=== PATIENT | male | born 1980 | race Caucasian/White ===

== ENCOUNTER → 2017-11-30 | Day surgery (SDC) | payer OTHER ==
--- NOTE | 2017-11-27 13:22 | Diagnostic Imaging Report ---
PROCEDURE: Frontal and lateral views of the chest. COMPARISON: None. INDICATIONS: PER OPERATIVE CHEST X-RAY FOR FOOT SURGERY FINDINGS: Lines/tubes: None. Lungs: The lungs are well inflated and clear. There is no evidence of pneumonia or pulmonary edema. Pleura: There is no pleural effusion or pneumothorax. Heart and mediastinum: The heart and the mediastinum are normal. Bones: No acute bony abnormality. IMPRESSION: 1. No acute cardiopulmonary abnormalities. Thomas Cruz M.D. Dictated by: Thomas Cruz M.D. on 11/27/2017 at 13:32 Electronically approved by: Thomas Cruz M.D. on 11/27/2017 at 13:32
[~2017-11-30] MED LIST: BUPIVACAINE HCL 0.5% 10ML MPF VIAL INJ ONE; CEFAZOLIN SOD 2 GM/D5W 50ML 50 ML IV ONE; DEXAMETHASONE SOD PHOS INJ 4 MG/ML VIAL ONE; FENTANYL CITRATE/PF 100MCG/2 ML INJ ONE; KETOROLAC TROMETHAMINE 30 MG/ML VIAL ONE; LIDOCAINE HCL 2% LOCAL INJ 5 ML SDV VIAL INJ ONE; METFORMIN HCL500 MG PO; MIDAZOLAM HCL 2 MG/2 ML VIAL ONE; MONTELUKAST SOD10 MG PO; NEOSTIGMINE 1 MG/ML 10ML VIAL ONE; ONDANSETRON HCL INJ 2 MG/ML VIAL ONE; PROPOFOL IV EMULSION 10 MG/ML 20 ML VIAL ONE; SEVOFLURANE INHAL SOLN 250 ML PEN BTL ONE; XYZAL5 MG PO; ZOLOFT50 MG PO
--- OUTSIDE RECORDS SUMMARY | 2017-11-30 08:10 | XMS REPORT ---
Author Author [facility] Address Unknown Phone Unavailable Care Team Providers [employer] Account Manager Name Role Phone MARTITA CARNEY Unavailable Unavailable Problems This patient has no known problems. Allergies, Adverse Reactions, Alerts This patient has no known allergies or adverse reactions. Medications This patient has no known medications. Results Test Description Test Time Test Comments Text Results Atomic Results Result Comments CHEST 2 VIEWS [place] [address] Patient Name: TONI MICHEL MR #: [id number] : 1980 Age/Sex: 37/M Req # : [id number] Adm Physician: Ordered by: MARTITA CARNEY DPM Report #: [id number] Location: OR Room/Bed: Procedure: [id number] DX/CHEST 2 VIEWS Exam Date: 11/27/17 Exam Time: 1230 REPORT STATUS: Signed PROCEDURE: Frontal and lateral views of the chest. COMPARISON: None. INDICATIONS: PER OPERATIVE CHEST X- RAY FOR FOOT SURGERY FINDINGS: Lines/tubes: None. Lungs: The lungs are well inflated and clear. There is no evidence of pneumonia or pulmonary edema. Pleura: There is no pleural effusion or pneumothorax. Heart and mediastinum: The heart and the mediastinum are normal. Bones: No acute bony abnormality. IMPRESSION: 1. No acute cardiopulmonary abnormalities. Mohan Bermudez M.D. Dictated by : Mohan Bermudez M.D. on 11/27/2017 at 13:32 Electronically approved by: Mohan Bermudez M.D. on 11/27/2017 at 13:32 Dictated By : MOHAN BERMUDEZ MD 31 Transcribed By: RACHAEL on 11/27/171331 COPY TO: MARTITA CARNEY DPM
--- NOTE | 2017-11-30 16:34 | Operative Report ---
DATE OF PROCEDURE: November 30, 2017 LOCATION: [facility]. PREOPERATIVE DIAGNOSES 1. 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 2. Plantarflexion of the 2nd metatarsal, right foot. POSTOPERATIVE DIAGNOSES: 1. 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 2. Plantarflexion of the 2nd metatarsal, right foot. TITLE OF OPERATION 1. Excision of the neuroma 2nd intermetatarsal space, right foot. 2. Fito osteotomy 2nd metatarsal of the right foot. ANESTHESIA: General endotracheal. HEMOSTASIS: Right ankle tourniquet at 250 mmHg. PROCEDURE IN DETAIL: The patient was taken to the operating room in a mildly sedated state and placed upon the operating table in supine position. Following induction of general anesthetic, the right lower extremity was elevated 60 degrees to exsanguinate for inflating the pneumatic thigh tourniquet. The right lower extremity was placed upon the operating table prior to performing the following procedures. The foot had been prepped and draped in the usual aseptic manner utilizing Betadine prep. A linear longitudinal incision was made overlying the dorsal aspect of the 2nd intermetatarsal space. A neurolysis had previously been performed in that area. There was a fair amount of scar tissue to advance through. Transverse intermetatarsal ligament was sectioned and the large neuroma structure underneath was noted. This was sectioned, removing the conjoined proximal extension of the nerve and dissecting out to the distal 2nd and 3rd digital extensions thus having been dissected free and removed. The nerve was sent to pathology for further evaluation. The area was irrigated with copious amounts of sterile saline solution. All superficial and deep bleeders were electrocoagulated, and the area was closed with 3-0 Vicryl and 4-0 nylon. Attention was directed to the dorsal aspect of the 2nd metatarsal of the right foot. A linear incision was placed overlying the 2nd metatarsal through the capsule and periosteum. The head of the 2nd metatarsal was identified and a Fito osteotomy was placed with a slide from distal dorsal to plantar proximal to allow it for relative shortening and remodeling of the 2nd metatarsal. This having been accomplished and the dorsal aspect further remodeled, a pop-off screw was used to fixate and the toe was put through range of motion and noted to be adequate. The area was irrigated with copious amounts of sterile saline solution. Deep closure with 3-0 Vicryl, subcutaneous closure with 4-0 Vicryl, and skin closure with 4-0 nylon. Pop-off screw was oriented from dorsal proximal to plantar distal, 12 mm in length. This area after irrigation and closure was injected with human tissue allograft, and the appropriate mildly compressive dressings were applied, blocked with 0.5% Marcaine and Decadron [place]. Release of the pneumatic thigh tourniquet showed a normal hyperemic flush to all digits of the right foot, and the patient left the operating room with vital signs stable in apparent satisfactory condition, having tolerated both anesthetic and procedure very well. Job#: [id number] JUANITA
== END | disposition home or self-care (01) ==
LOC: OR 08:07
PROVIDERS: ATTEND Podiatrist Foot Surgery
DX: G57.61 Lesion of plantar nerve, right lower limb (principal); M21.271 Flexion deformity, right ankle and toes; G47.33 Obstructive sleep apnea (adult) (pediatric); E11.9 Type 2 diabetes mellitus without complications; F32.9 Major depressive disorder, single episode, unspecified; F41.9 Anxiety disorder, unspecified; Z01.810 Encounter for preprocedural cardiovascular examination; Z01.818 Encounter for other preprocedural examination; Z87.891 Personal history of nicotine dependence
CPT/HCPCS: 28080; 28308; 71046; 88304; 93005; J1100; J1885; J2001; J2250; J2405; J2710

== ENCOUNTER → 2021-02-11 | Day surgery (SDC) | payer OTHER ==
[2021-02-09 08:44] LABS: BASOPHILS # (AUTO) 0.1 (0.0-0.1); BASOPHILS % 0.6 % (0.0-1.0); EOSINOPHILS # (AUTO) 0.2 (0.0-0.4); EOSINOPHILS % 2.4 % (0.0-6.0); HEMATOCRIT 43.5 % (38.2-49.6); HEMOGLOBIN 14.8 g/dL (14.0-18.0); MEAN CORPUSCULAR HEMOGLOBIN 29.7 pg (28-32); MEAN CORPUSCULAR VOLUME 87.3 fL (81-99); MONOCYTES # (AUTO) 0.8 (0.2-0.8); MONOCYTES % 8.1 % (4.4-11.3); NEUTROPHILS # (AUTO) 6.3 (2.1-6.9); NEUTROPHILS % 67.5 % (38.7-80.0); PLATELET COUNT 231 x10e3/uL (140-360); RED BLOOD COUNT 4.98 x10e6/uL (4.3-5.7); RED CELL DISTRIBUTION WIDTH 13.1 % (11.7-14.4)
[2021-02-09 09:01] LABS: ANION GAP 13.1 mmol/L (8-16); BLOOD UREA NITROGEN 15 mg/dL (7-26); BUN/CREATININE RATIO 14 (6-25); CALCIUM 8.9 mg/dL (8.4-10.2); CARBON DIOXIDE 23 mmol/L (22-29); CHLORIDE 107 mmol/L (98-107); CREATININE, SERUM 1.04 mg/dL (0.72-1.25); EST GLOMERULAR FILTRATION RATE > 60 ML/MIN (60-); GLUCOSE 107 mg/dL (74-118); POTASSIUM 4.1 mmol/L (3.5-5.1); SODIUM 139 mmol/L (136-145)
[~2021-02-11] MED LIST changes: -BUPIVACAINE HCL 0.5% 10ML MPF VIAL INJ ONE; +BUPIVACAINE HCL 0.5% INJ 30 ML VIAL INJ ONE; +CEFAZOLIN SOD 1 GM VIAL ONE; +CEFAZOLIN SOD 1 GM/NS 50ML 100 ML IV ONE; -CEFAZOLIN SOD 2 GM/D5W 50ML 50 ML IV ONE; +HYDROMORPHONE 1MG/1ML INJ ONE; -LIDOCAINE HCL 2% LOCAL INJ 5 ML SDV VIAL INJ ONE; +MEPERIDINE HCL INJ 25 MG/ML VIAL ONE; -MIDAZOLAM HCL 2 MG/2 ML VIAL ONE; -NEOSTIGMINE 1 MG/ML 10ML VIAL ONE; -ONDANSETRON HCL INJ 2 MG/ML VIAL ONE; +ONDANSETRON HCL INJ 2MG/ML 2ML 2 MG/ML VIAL ONE; +POVIDONE IODINE 0.05% 0.05 % ML PO ONE; +PROVIGIL PO
[2021-02-11 12:15] VITALS: BP 123/70
== END | disposition home or self-care (01) ==
LOC: OR 07:04
PROVIDERS: ATTEND Podiatrist Foot Surgery
DX: M20.41 Other hammer toe(s) (acquired), right foot (principal); M77.8 Other enthesopathies, not elsewhere classified; G58.8 Other specified mononeuropathies; M19.071 Primary osteoarthritis, right ankle and foot; M62.579 Muscle wasting and atrophy, not elsewhere classified, unspecified ankle and foot; T84.84XA Pain due to internal orthopedic prosthetic devices, implants and grafts, initial encounter; G47.33 Obstructive sleep apnea (adult) (pediatric); E66.01 Morbid (severe) obesity due to excess calories; F32.9 Major depressive disorder, single episode, unspecified; F41.9 Anxiety disorder, unspecified; Y83.8 Other surgical procedures as the cause of abnormal reaction of the patient, or of later complication, without mention of misadventure at the time of the procedure; Z01.810 Encounter for preprocedural cardiovascular examination; Z01.812 Encounter for preprocedural laboratory examination; Z01.818 Encounter for other preprocedural examination; Z20.822 Contact with and (suspected) exposure to COVID-19
CPT/HCPCS: 20680; 28285; 64704; J3590; 36415; 71046; 76000; 80048; 85025; 93005; C1713; J0690; J1100; J1170; J1885; J2175; J2405; J3010; U0002

== ENCOUNTER 2021-07-18 07:30 | Inpatient (IN) | payer OTHER ==
[2021-07-15 09:44] LABS: BASOPHILS # (AUTO) 0.1 (0.0-0.1); BASOPHILS % 0.9 % (0.0-1.0); EOSINOPHILS # (AUTO) 0.2 (0.0-0.4); EOSINOPHILS % 2.5 % (0.0-6.0); HEMATOCRIT 44.2 % (38.2-49.6); LYMPHOCYTES # (AUTO) 1.8 (1.0-3.2); LYMPHOCYTES % 23.1 % (18.0-39.1); MEAN CORPUSCULAR HEMOGLOBIN 30.7 pg (28-32); MEAN CORPUSCULAR HGB CONC 33.9 g/dL (31-35); MEAN CORPUSCULAR VOLUME 90.4 fL (81-99); MONOCYTES # (AUTO) 0.9 (0.2-0.8); MONOCYTES % 11.5 % (4.4-11.3); NEUTROPHILS # (AUTO) 4.7 (2.1-6.9); NEUTROPHILS % 61.6 % (38.7-80.0); PLATELET COUNT 237 x10e3/uL (140-360); RED BLOOD COUNT 4.89 x10e6/uL (4.3-5.7); RED CELL DISTRIBUTION WIDTH 12.8 % (11.7-14.4)
[~2021-07-18] VITALS: Ht 188 cm; Wt 170.1 kg
[~2021-07-18 07:30] MED LIST changes: -BUPIVACAINE HCL 0.5% INJ 30 ML VIAL INJ ONE; -CEFAZOLIN SOD 1 GM VIAL ONE; -CEFAZOLIN SOD 1 GM/NS 50ML 100 ML IV ONE; -DEXAMETHASONE SOD PHOS INJ 4 MG/ML VIAL ONE; -FENTANYL CITRATE/PF 100MCG/2 ML INJ ONE; -HYDROMORPHONE 1MG/1ML INJ ONE; -KETOROLAC TROMETHAMINE 30 MG/ML VIAL ONE; -MEPERIDINE HCL INJ 25 MG/ML VIAL ONE; -ONDANSETRON HCL INJ 2MG/ML 2ML 2 MG/ML VIAL ONE; -POVIDONE IODINE 0.05% 0.05 % ML PO ONE; -PROPOFOL IV EMULSION 10 MG/ML 20 ML VIAL ONE; -SEVOFLURANE INHAL SOLN 250 ML PEN BTL ONE
[2021-07-18] MEDS ORDERED: SODIUM CHLORIDE 0.9% 50ML 100 ML ONE (08:20)
[2021-07-18] MEDS ORDERED: BUPIVACAINE 0.25% 30ML SDV ONE (11:03)
[2021-07-18] MEDS ORDERED: ACETAMINOPHEN 1000 MG/100 ML 100 ML IV ONE (11:04)
[2021-07-18] MEDS ORDERED: POVIDONE IODINE 0.05% 0.05 % ML PO ONE (13:08)
[2021-07-18] MEDS ORDERED: NEOSTIGMINE 1 MG/ML 10ML VIAL ONE (13:08)
[2021-07-18] MEDS ORDERED: SEVOFLURANE INHAL SOLN 250 ML PEN BTL ONE (13:08)
[2021-07-18] MEDS ORDERED: ROCURONIUM BROMIDE 10 MG/ML 5ML VIAL IV ONE (13:08)
[2021-07-18] MEDS ORDERED: LIDOCAINE HCL 2% LOCAL INJ 5 ML SDV VIAL INJ ONE (13:08)
[2021-07-18] MEDS ORDERED: DEXAMETHASONE SOD PHOS INJ 4 MG/ML SDV ONE (13:08)
[2021-07-18] MEDS ORDERED: ONDANSETRON HCL INJ 2MG/ML 2ML 2 MG/ML VIAL ONE ×2 (13:08→13:13)
[2021-07-18] MEDS ORDERED: GLYCOPYRROLATE INJ 0.2 MG/ML VIAL ONE (13:08)
[2021-07-18] MEDS ORDERED: PROPOFOL IV EMULSION 10 MG/ML 20 ML VIAL ONE (13:08)
[2021-07-18] MEDS ORDERED: METOCLOPRAMIDE HCL 10 MG/2ML VIAL ONE (13:13)
[2021-07-18] MEDS ORDERED: SCOPOLAMINE 1.5 MG PATCH ONE (13:22)
[2021-07-18] MEDS ORDERED: HYDROMORPHONE 1MG/1ML INJ ONE (13:28)
[2021-07-18] MEDS ORDERED: PROMETHAZINE HCL (IM) 25 MG/ML VIAL IM ONE (13:53)
[2021-07-18] MEDS ORDERED: MORPHINE SULFATE INJ 2 MG/ML SYR ONE (16:27)
[2021-07-18] MEDS ORDERED: LACTATED RINGER'S 1,000 ML INJ ONE (20:00)
[2021-07-18] MEDS ORDERED: ONDANSETRON HCL INJ 2MG/ML 2ML 2 MG/ML VIAL IV PRN (20:00)
[2021-07-18 20:32] VITALS: BP 140/67
[2021-07-18] MEDS: MORPHINE SULFATE INJ 2 MG/ML SYR IV PRN ×2 (20:47→22:50)
[2021-07-18] MEDS: LACTATED RINGER'S 1,000 ML INJ SCH (20:47)
[2021-07-18] MEDS: ENOXAPARIN SOD INJ 40 MG/0.4 ML SYR SC SCH (20:50)
[2021-07-18 21:00] VITALS: BP 140/67
[2021-07-19 01:23] VITALS: BP 148/72
[2021-07-19] MEDS: MORPHINE SULFATE INJ 2 MG/ML SYR IV PRN (01:37)
[2021-07-19] MEDS: LACTATED RINGER'S 1,000 ML INJ SCH (04:05)
[2021-07-19 05:03] LABS: BASOPHILS % 0.1 % (0.0-1.0); EOSINOPHILS % 0.1 % (0.0-6.0); HEMATOCRIT 40.1 % (38.2-49.6); HEMOGLOBIN 14.1 g/dL (14.0-18.0); LYMPHOCYTES # (AUTO) 1.2 (1.0-3.2); LYMPHOCYTES % 8.4 % (18.0-39.1); MEAN CORPUSCULAR HEMOGLOBIN 30.9 pg (28-32); MEAN CORPUSCULAR HGB CONC 35.2 g/dL (31-35); MEAN CORPUSCULAR VOLUME 87.9 fL (81-99); MONOCYTES % 7.4 % (4.4-11.3); NEUTROPHILS # (AUTO) 11.5 (2.1-6.9); NEUTROPHILS % 83.6 % (38.7-80.0); PLATELET COUNT 234 x10e3/uL (140-360); RED BLOOD COUNT 4.56 x10e6/uL (4.3-5.7); RED CELL DISTRIBUTION WIDTH 13.1 % (11.7-14.4)
[2021-07-19 05:34] LABS: ANION GAP 17.5 mmol/L (8-16); CREATININE, SERUM 0.84 mg/dL (0.72-1.25); MAGNESIUM 2.1 MG/DL (1.3-2.1); PHOSPHORUS 2.8 MG/DL (2.3-4.7); POTASSIUM 3.5 mmol/L (3.5-5.1)
[2021-07-19 05:55] VITALS: BP 137/71
[2021-07-19 07:34] VITALS: BP 119/64
[2021-07-19] MEDS ORDERED: HYDROCODONE/APAP 7.5MG-325MG 1 EA TAB PO PRN (08:00)
[2021-07-19 08:32] VITALS: BP 119/64
[2021-07-19] MEDS: ENOXAPARIN SOD INJ 40 MG/0.4 ML SYR SC SCH (09:13)
== END 2021-07-19 11:11 | disposition home or self-care (01) | DRG 621 ==
LOC: OR 07:30 → PACU V 13:34 → MED/SURG2 18:42
PROVIDERS: ADMIT Family Medicine; ATTEND Family Medicine
PROC: 0DB64Z3 Excision of Stomach, Percutaneous Endoscopic Approach, Vertical (ICD-10-PCS; principal; 2021-07-18 09:30)
DX: E66.01 Morbid (severe) obesity due to excess calories (principal); Z68.42 Body mass index [BMI] 45.0-49.9, adult; G47.33 Obstructive sleep apnea (adult) (pediatric)
CPT/HCPCS: 36415; 80048; 83735; 84100; 85025; 93005; J0690; J1100; J1170; J1650; J2001; J2270; J2405; J2550; J2710; J2765; J7121; U0002